=== PATIENT | female | born 1975 | race African-American/Black ===

== ENCOUNTER 2020-06-23 10:30 | Outpatient (RCR) | payer BC, SELFPAY ==
--- NOTE | 2020-06-01 13:19 | PTOPEVAL ---
PHYSICAL THERAPY EVALUATION AND PLAN OF CARE UPDATE Thank you for referring Renee Quinteros to [facility].? The patient is scheduled to be seen for therapy? 2x/week for 4-6 weeks. Please review, sign, date and return this plan of care JEAN PIERRE. I agree with and certify that the following plan of care is medically necessary. Referring Physician Date Attending Provider: Chip Plasencia MD Evaluation Outpatient Past Medical History Cardiovascular History Hx Hypertension Yes: medicated Psychosocial History Hx Anxiety Yes: medication as needed Diagnosis left knee pain Onset 2 years Cause OA Subjective Information Renee is here today with c/o Query Text:As Reported By Patient/ chronic left knee pain. She Family tried injections that were temporariy helpful, but states she feels like she needs something stronger. Doctor did talk about doing surgery but she needs to lose 50# before he will do surgery. Uses a straight cane every day and throughou the her house and community. Pain with getting into and out of car and bed and walking and stairs. Left Knee(s) Reported Pain Level 6 Pain Description Aching Pain Frequency Chronic,Continuous Lowest Pain Intensity 5 Greatest Pain Intensity 10 Pain Aggravating Factors Sitting,Stair Climbing,Walking ,Weight Bearing/Standing Pain Behaviors Guarding Pain Score Pain Score 6: Self Report Interventions Used Interventions Used By Clinicians Exercise Lower Extremity Muscle Strength Testing Hip Strength Left Hip Flexion Strength 4- Good - Hip Extension Strength 3+ Fair + Hip Abduction Strength 3- Fair - Knee Strength Left Knee Flexion Strength 4- Good - Knee Extension Strength 3+ Fair + Muscle Length Testing Muscle Length Testing Dada Test Shortened Muscles Short (R) Iliopsoas,Short (L) Iliopsoas,Short (R) Rectus Femoris,Short (L) Rectus Femoris Piriformis w/Hip Flexion >90 Degrees (R) Mild Tightness,(L) Moderate Tightness Left Hamstring Length -45 Query Text:(90 - 90 Position) Right Hamstring Length -45 Query Text:(90 - 90 Position) Posture Posture Standing Position We
--- NOTE | 2020-06-09 10:00 | PCPTNOTE ---
Patient cancelled apt with no reason given. She stated she will be here at her next apt.
--- NOTE | 2020-06-14 10:41 | PCPTNOTE ---
Patient called & cancelled scheduled appointment this date due to not feeling comfortable driving in the fog.
--- NOTE | 2020-06-21 12:36 | PCPTNOTE ---
Patient did not show up for scheduled appointment this date; called and left voicemail for reminder on next appointment Friday 06/23 @10:30.
--- NOTE | 2020-06-28 10:56 | PCPTNOTE ---
Patient called & cancelled scheduled appointment this date due to not having transportation.
--- NOTE | 2020-06-30 10:57 | PCPTNOTE ---
Patient called & cancelled scheduled appointment this date due to not feeling well. This appointment was to be her re-assessment appointment to determine further needs for PT. We will reschedule this appointment at soonest possible time.
--- NOTE | 2020-07-07 10:11 | PCPTNOTE ---
Patient called & re-scheduled appointment this date due to weather. She re-scheduled for 07/15 at 1445.
--- NOTE | 2020-07-15 11:39 | PCPTNOTE ---
Patient called & cancelled scheduled appointment this date. She re-scheduled the appt for 07/20.
--- NOTE | 2020-07-20 13:45 | PCPTNOTE ---
Patient did not show up for scheduled appointment this date.
--- NOTE | 2020-07-20 13:53 | PCPTNOTE ---
PHYSICAL THERAPY DISCHARGE NOTE Attending Provider: Chip Plasencia MD Patient:Renee Quinteros Date of :1975 Patient has not returned for any further treatments since 06/23/2020, therefore will be discharged at this time. Patient?s initial visit was on 06/01/2020 and had a total of 3 visits. She was participating in physical therapy for knee pain. Thank you for referring this patient to [facility]. Please review, sign, date and return this discharge summary JEAN PIERRE. I have been updated about the patient's current status and I agree with discharge from the above service at this time. Referring Physician Date
== END 2020-07-21 07:43 | disposition home or self-care (01) ==
LOC: ANHPT 10:30
PROVIDERS: Referring Provider Orthopaedic Surgery; Visit Provider Orthopaedic Surgery
DX: M17.12 Unilateral primary osteoarthritis, left knee (principal)
CPT/HCPCS: 97110; 97161

== ENCOUNTER 2020-09-29 13:27 | Outpatient (CLI) | payer BC, SELFPAY ==
--- NOTE | ~2020-09-29 | MR_ITS ---
EXAMINATION: MR knee LT wo con DATE: 09/29/2020 15:06 INDICATION: Osteoarthritis with left knee pain, limited range of motion and difficulty walking TECHNIQUE: Magnetic resonance imaging (MRI) of the left knee was performed without intravenous contra st. Sequences included coronal PD-weighted FSE, coronal PD-weighted FS FSE, sagittal T2-weighted FSE , sagittal PD-weighted FS FSE and axial PD weighted fat saturated FSE. COMPARISON: None. FINDINGS: Motion artifact on the fat-saturated coronal and both the sagittal images which mild to moderately li mits evaluation primarily of the cartilage. Medial compartment: There is a tear extending to the intra-articular surface of the posterior horn of the medial meniscus . Due to the motion artifact is unclear whether this represents a longitudinal horizontal or complex tear. Partial-thickness cartilage loss involving greater than 50% of the cartilage thickness at the a nterior weightbearing medial femoral condyle without degenerative subchondral changes.. Small margina l osteophytes are present. Lateral compartment: Lateral meniscus is normal. Tiny focus of linear fluid signal along the bone chondral interface at th e anterior weightbearing lateral femoral condyle which could be related to a deep chondral fissure or blisterlike delamination. Patellofemoral compartment: Partial-thickness chondral ulceration without degenerative subchondral changes at the patellar apical ridge and medial facet. Additional partial thickness chondral ulceration with deep fissuring along b oth the medial and lateral trochlea and intervening trochlear groove. Moderate-sized patellar and tro chlear marginal osteophytes are present. Ligaments and tendons: Anterior and posterior cruciate ligaments are normal. The medial collateral ligament and fibular angie ateral ligament complex are normal. The extensor mechanism is normal. The visualized medial and later al hamstring tendons as well as the iliotibial band are normal. Fluid: Small knee joint effusion at the suprapatellar pouch. No loose osteochondral bodies identified. Osseous/other: Geographic regions of red marrow reexpansion in the metadiaphyseal region of the distal femur. No fra cture or pathologic marrow replacing process. IMPRESSION: 1. Tear of the posterior horn of the medial meniscus. 2. Mild to moderate medial and patellofemoral compartment osteoarthritis with extensive moderate grad e chondromalacia. Reviewed, dictated and finalized at location A. IMPRESSION: 1. Tear of the posterior horn of the medial meniscus. 2. Mild to moderate medial and patellofemoral compartment osteoarthritis with e xtensive moderate grade chondromalacia.
== END 2020-09-29 13:28 | disposition home or self-care (01) ==
PROVIDERS: PCP Internal Medicine; Visit Provider Orthopaedic Surgery
DX: M17.12 Unilateral primary osteoarthritis, left knee (principal); S83.242A Other tear of medial meniscus, current injury, left knee, initial encounter; M22.42 Chondromalacia patellae, left knee
CPT/HCPCS: 73721

== ENCOUNTER 2020-10-26 13:17 | Outpatient (CLI) | payer BC, SELFPAY ==
--- NOTE | 2020-10-26 13:15 | ECG_ITS ---
Measurements Intervals [place] Rate: 70 P: 8 MT: 163 QRS: 6 QRSD: 111 T: 48 QT: 376 QTc: 407 Interpretive Statements SINUS RHYTHM INCOMPLETE RIGHT BUNDLE BRANCH BLOCK DELAYED PRECORDIAL R/S TRANSITION BASELINE ARTIFACT- I, III, AVR, AVL, AVF BORDERLINE ECG Electronically Signed On 10-26-2020 14:10:53 CDT by Saad Gastelum D.O.
[2020-10-26 14:23] LABS: Anion Gap 4 mmol/L (8-16); Blood Urea Nitrogen 16 mg/dL (7-17); Calcium 9.6 mg/dL (8.4-10.2); Carbon Dioxide 28 mmol/L (22-30); Chloride 108 mmol/L (98-107); Estimated Glomerular Filt Rate > 60; Glucose 91 mg/dL (65-105); Potassium 3.8 mmol/L (3.4-5.0); Sodium 140 mmol/L (137-145)
== END 2020-10-26 13:18 | disposition home or self-care (01) ==
LOC: ANHSURGERY 13:23
PROVIDERS: Anesthesiology; PCP Internal Medicine; Visit Provider Orthopaedic Surgery
DX: Z01.818 Encounter for other preprocedural examination (principal); Z51.81 Encounter for therapeutic drug level monitoring; Z79.811 Long term (current) use of aromatase inhibitors; I45.10 Unspecified right bundle-branch block; I10 Essential (primary) hypertension
CPT/HCPCS: 36415; 80048; 93005

== ENCOUNTER → 2020-10-30 01:41 | Outpatient (CLI) | payer BC, SELFPAY ==
[2020-11-01 18:35] LABS: SARS-CoV-2 RNA PCR Negative
== END ==
PROVIDERS: Visit Provider Orthopaedic Surgery
DX: Z01.812 Encounter for preprocedural laboratory examination (principal); Z20.822 Contact with and (suspected) exposure to COVID-19
CPT/HCPCS: C9803; U0003; U0005

== ENCOUNTER 2020-11-02 02:27 | Day surgery (SDC) | payer BC, SELFPAY ==
[2020-10-21 08:47] VITALS: BMI 41.8
[2020-11-02] VITALS (7 sets, daily range): BP systolic 136–162; BP diastolic 82–102; PULSE 54–70; RESP 14–16; TEMP 36.1–36.6; O2SAT 96–100
[2020-11-02] MEDS: ACETAMINOPHEN 500 MG TABLET 1000 MG PO (13:33)
[2020-11-02] MEDS: LACTATED RINGERS 1,000 ML 30 ML IV CONT (13:48)
[2020-11-02] MEDS: KETOROLAC 15 MG/ML VIAL (*BKC) IV PUSH (13:49)
--- NOTE | 2020-11-02 14:03 | P.PNAN_ITS ---
Anes - Initial Pre Proc Eval Procedure: Operation Date: 11/02/20 14:30 Proposed Procedures p Arthroscopic Left Knee Partial Medial Meniscectomy - Chip Plasencia MD Date/Time: 11/02/20 14:03 Surgeon: Chip Plasencia MD Pre Op Diagnosis: left medial meniscus tear Patient Data Age: 45 Gender: F Height: 1.8 m Weight: 136 kg Allergies Allergy/AdvReac Type Severity Reaction Status Date / Time No Known Allergies Allergy Verified 11/02/20 13:58 Home Medications Medication Instructions Recorded Confirmed Type amlodipine 10 mg tablet 10 mg PO DAILY 01/27/20 10/21/20 History atenolol 100 mg tablet 100 mg PO DAILY 01/27/20 10/21/20 History ibuprofen 800 mg tablet 800 mg PO TID #60 tablet 10/12/20 10/21/20 Rx hydrochlorothiazide 25 mg PO DAILY 10/21/20 10/21/20 History Patient hx anesthesia problems: none Family hx anesthesia problems: none [facility] Past Medical History Medical History (Updated 11/01/20 @ 13:35 by Umer Alarcon DO) Arthritis of left knee Hypertension Hypothyroidism Surgical History Surgical History (Updated 11/01/20 @ 13:35 by Umer Alarcon DO) History of tubal ligation Family History Family History Other Arthritis Diabetes mellitus Hypertension Social History Social History Smoking status: Never smoker Second hand tobacco smoke exposure: Yes Alcohol intake: current Drinks per week: 3 Substance use: current Substance use type: marijuana Other substance usage details: SMOKES 2-3/DAY Last use: 10/21/20 Living arrangements: with family Spiritual care concerns: No Anes - Eval Final PreProcedure Day of Procedure 11/02/20 14:03 Patient weight: morbidly obese Heart: regular rate and rhythm Lungs: clear to auscultation and normal air movement Airway: Mallampati scale class II Neurological: alert and oriented Last oral intake: >/= 8 hours ASA classification: III Emergent: no Anesthetic plan: proceed Anesthesia type and monitoring: general LMA and standard monitoring Informed Consent: The patient's anesthetic plan and its attendant risks and benefits were discussed with the patient/family/POA. Questions were solicited and answers provided to the satisfaction of the patient/family/POA.
--- NOTE | 2020-11-02 14:34 | WPDHPUPDATE1 ---
History and Physical Update Update Date/Time: 11/02/20 14:34 History and Physical has been reviewed, including an updated exam of the patient. There are NO changes in the patient's condition. Risks, benefits, and alternatives have been discussed and questions answered. Patient agrees to proceed with procedure.
[2020-11-02] MEDS: ceFAZolin 3 GM/D5W 100 ML 100 ML IVPB (14:39)
[2020-11-02] MEDS: BUPIVACAINE/EPINEPHRINE 0.25% 10 ML VIAL 20 ML INFILTRATE (15:09)
--- NOTE | 2020-11-02 16:19 | SUR.PHASEI ---
1619- family member updated on pt condition.
--- NOTE | 2020-11-02 18:07 | PM.PROC ---
Procedure Note - Detailed Date of procedure: 11/02/20 Pre-op diagnosis: left medial meniscus tear Medial meniscus tear. Post-op diagnosis: same Procedure performed: Arthroscopic partial medial meniscectomy, left knee. Description of procedure: Significant posterior horn medial meniscus tear with unstable flaps. Grade 3 degenerative chondromalacia along the weight bearing medial femur and tibia. Also in the trochlea and grade 2 at the patella. Lateral compartment had softening of the femoral and tibial cartilage with minor fissuring at the weight-bearing lateral tibia. Mild fraying of the inner rim of the lateral meniscus was debrided. Anesthesia: GETA Surgeon: Chip Plasencia MD Stretcher Helper: Riya Hobbs PA-C Estimated blood loss (mL): 5 Pathology: none sent Complications: None Condition: stable Disposition: PACU Findings: Brief History: The patient complained of knee pain, swelling and mechanical symptoms despite conservative treatment. MRI confirmed the presence of a meniscus tear. Procedure Details: The patient was identified and the surgical site confirmed and signed in the preoperative holding area. Antibiotics were started per protocol. She was brought to the operative room and transferred to the OR table. A general anesthetic was administered. Supine position with the operative lower extremity position in the leg chaudhry after placement of a well padded tourniquet. The leg support was lowered and the contralateral limb was supported with a soft bolster. The knee was prepped and draped in the usual sterile fashion. A time-out was performed. The portal sites were marked and infiltrated with 0.5% Marcaine 20 mL. The limb was exsanguinated and the tourniquet inflated to 300 mL Hg. Standard inferolateral and inferomedial portals were established. Inflow was obtained with the saline pump. The camera was introduced. Diagnostic inspection of the joint was accomplished. The meniscus was debrided with the arthroscopic shaver and punches until stable. The arthroscopic instruments were removed. The tourniquet released and wounds closed with subcutaneous 3-0 Monocryl absorbable suture. Steri strips and a sterile dressing were applied. A light elastic wrap was placed. The patient was extubated and brought to the recovery room in stable condition.
== END 2020-11-02 17:10 | disposition home or self-care (01) ==
PROVIDERS: PCP Internal Medicine; Visit Provider Orthopaedic Surgery
PROC: (CPT 29870; principal; 2020-11-02 14:30)
DX: M23.322 Other meniscus derangements, posterior horn of medial meniscus, left knee (principal); M94.262 Chondromalacia, left knee; M17.12 Unilateral primary osteoarthritis, left knee; I10 Essential (primary) hypertension; E03.9 Hypothyroidism, unspecified; F12.90 Cannabis use, unspecified, uncomplicated; E66.01 Morbid (severe) obesity due to excess calories; Z68.41 Body mass index [BMI] 40.0-44.9, adult
CPT/HCPCS: 29881; 97116; A9270; J0690; J1100; J1885; J2250; J2405; J2704; J3010; J7120

== ENCOUNTER 2020-12-21 12:30 | Outpatient (RCR) | payer BC, SELFPAY ==
--- NOTE | 2020-12-10 15:30 | PTOPEVAL ---
Thank you for referring Renee Quinteros to [facility].? The patient is scheduled to be seen for therapy? 2 x/week for 8 weeks. Please review, sign, date and return this plan of care JEAN PIERRE. I agree with and certify that the following plan of care is medically necessary. Referring Physician Date Attending Provider: Chip Plasencia MD Referring Provider: Chip Plasencia MD Diagnosis left knee pain Onset 11/02/20 Additional Evaluation Detail 1. Tear of the posterior horn of the medial meniscus. 2. Mild to moderate medial and patellofemoral compartment osteoarthritis with extensive moderate grade chondromalacia. s/p arthroscopic surgery Subjective Information She has been having issue with Query Text:As Reported By Patient/ ADL's, WB on left LE, walking, Family getting in/out of car, transfering off low surfaces. She is avoiding steps due to poor tolerance. She is limited with walking activities. 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 Recreational act: spending time with family, shopping 15 steps to enter house Previous Treatments Previous Treatments For This Problem no Pain Assessment Pain Scale Used Numeric (1 - 10) Self Report Pain Assessment Left Knee(s) Reported Pain Level 5 Pain Description Aching,Sharp,Soreness Pain Frequency Acute,Continuous Lowest Pain Intensity 2 Greatest Pain Intensity 9 Pain Aggravating Factors ADL's,Bending,Exercise/ Activity,Lifting,Palpation, Procedure or Surgery,Prolonged Position,Stair Climbing, Walking,Weight Bearing/ Standing Lower Extremity Range of Motion General Lower Extremity Range of Motion Gross Lower Extremity Range of Motion right knee flex: 110dg Comments ROM limited by soft tissue Knee Range of Motion Left Knee Flexion Range of Motion - Active 100 Knee Extension Range of Motion - Active -12 Lower Extremity Muscle Strength Testing General Lower Extremity Strength Gross Lower Extremity Strength right hip ext: 3-/5, hip abduction: 3/5 Hip Strength Left Hip Flexion Strength 3- Fair - Hip Extension Strength 3- Fair - Hip Abduction Strength
--- NOTE | 2020-12-28 15:14 | PCPTNOTE ---
Patient did not show up for scheduled appointment this date. Left message on VM.
--- NOTE | 2020-12-31 13:23 | PCPTNOTE ---
Patient called & cancelled scheduled appointment this date due to having another appointment.
--- NOTE | 2021-01-05 13:50 | PCPTNOTE ---
Patient did not show up for scheduled appointment this date. Called & had to leave a message.
--- NOTE | 2021-01-07 13:15 | PCPTNOTE ---
Patient did not show up for scheduled appointment this date. Spoke with patient regarding her multiple missed therapy visits. Reminded her of her next visit. Informed her she will be DC from therapy if she missed the next visit.
--- NOTE | 2021-01-10 13:50 | PCPTNOTE ---
Patient did not show up for scheduled appointment this date.
--- NOTE | 2021-01-11 11:24 | PCPTNOTE ---
Admitting Provider: Attending Provider: Chip Plasencia MD Patient:Renee Quinteros Date of :1975 Discharge Therapy Note Patient has not returned for any further treatments since 12/21/2020, therefore she will be discharged at this time. Patient?s initial visit was on 12/10/2020 13:00 and she had a total of 2 visit with 5 no show/cancelled visits. . The goals have been not met due to poor attendance of therapy. Thank you for referring this patient to [facility]. Please review, sign, date and return this discharge summary JEAN PIERRE. I have been updated about the patient's current status and I agree with discharge from the above service at this time. Referring Physician Date
== END 2021-02-23 09:15 | disposition home or self-care (01) ==
LOC: ANHPT 12:30
PROVIDERS: Referring Provider Orthopaedic Surgery; Visit Provider Orthopaedic Surgery
DX: M25.562 Pain in left knee (principal)
CPT/HCPCS: 97110; 97140; 97162